=== PATIENT | male | born 1970 | race Caucasian/White ===

== ENCOUNTER 2017-09-08 16:33 | Inpatient (IN) | payer OTHER ==
[~2017-09-08] VITALS: Ht 172.7 cm; Wt 72.5 kg
[2017-09-08] MEDS ORDERED: QUET200T PO (16:49)
[2017-09-08 17:08] LABS: BASOPHILS # (AUTO) 0.01 K/uL (0.00-0.20); BASOPHILS % (AUTO) 0.1 % (0.0-2.0); EOSINOPHILS # (AUTO) 0.01 K/uL (0.00-0.70); EOSINOPHILS % (AUTO) 0.14 % (1.0-6.0); HEMATOCRIT 45.2 % (41-53); HEMOGLOBIN 15.3 g/dL (13.5-17.5); LYMPHOCYTES # (AUTO) 1.1 K/uL (1.0-4.8); LYMPHOCYTES % (AUTO) 14.1 % (22.0-44.0); MEAN CORPUSCULAR HEMOGLOBIN 32.2 pg (26.0-34.0); MEAN CORPUSCULAR VOLUME 95 fL (80-100); MONOCYTES # (AUTO) 0.4 K/uL (0.1-1.0); MONOCYTES % (AUTO) 5.4 % (2.0-9.0); NEUTROPHILS % (AUTO) 80.2 % (40.0-70.0); PLATELET COUNT (AUTO) 343 K/uL (150-450); RED BLOOD CELL COUNT(AUTO) 4.76 MIL/uL (4.50-5.90); RED CELL DISTRIBUTION WIDTH 13.4 % (11.5-14.5); WHITE BLOOD COUNT (AUTO) 7.5 K/uL (4.5-11.0)
[2017-09-08 17:13] LABS: ANION GAP 5 mmol/L (8-16); CALCIUM, TOTAL 8.7 mg/dL (8.8-10.5); CARBON DIOXIDE 28 mmol/L (22-29); CHLORIDE 100 mmol/L (98-107); CREATININE 1.07 mg/dL (0.60-1.30); GLOMERULAR FILTR. RATE CALC > 60 mL/min (>60); POTASSIUM 3.5 mmol/L (3.5-5.1); SODIUM SERUM 133 mmol/L (136-145); UREA NITROGEN, BLOOD 7 mg/dL (7-18)
[2017-09-08 17:24] LABS: ALANINE AMINOTRANSFERASE 43 U/L (12-78); ALBUMIN 3.9 g/dL (3.4-5.0); ASPARTATE AMINOTRANSFERASE 37 U/L (15-37); BILIRUBIN,TOTAL 0.5 mg/dL (0.1-1.0); TOTAL PROTEIN, SERUM 7.1 g/dL (6.4-8.2)
[2017-09-08] MEDS ORDERED: ZOLPIDEM TARTRATE 10 MG TABLET PO PRN (17:30)
[2017-09-08] MEDS ORDERED: HALOPERIDOL 5 MG TABLET PO PRN ×2 (17:30→17:45)
[2017-09-08] MEDS ORDERED: LORazepam 2 MG TABLET PO PRN (17:30)
[2017-09-08 18:45] VITALS: BP 145/89
[2017-09-08] MEDS: LORazepam 2 MG TABLET PO PRN (19:09)
[2017-09-08 19:45] VITALS: BP 143/88
[2017-09-08] MEDS ORDERED: INFLUENZA VIRUS VACCINE QVS 2017-18 (3YR+)/PF 60 MCG/0.5 ML SYRINGE IM ONE (20:00)
[2017-09-08 20:45] VITALS: BP 135/82
[2017-09-08] MEDS: QUEtiapine FUMARATE 200 MG TABLET PO SCH (20:53)
[2017-09-08] MEDS: ZOLPIDEM TARTRATE 10 MG TABLET PO PRN (21:26)
[2017-09-08 21:49] VITALS: BP 121/80
[2017-09-09] VITALS (7 sets, daily range): BP systolic 124–146; BP diastolic 62–90
[2017-09-09] MEDS: ESCITALOPRAM OXALATE 10 MG TABLET PO SCH (09:15)
[2017-09-09] MEDS: LORazepam 2 MG TABLET PO PRN (13:43)
[2017-09-09] MEDS ORDERED: LOPERAMIDE HCL 2 MG CAPSULE PO PRN (13:45)
[2017-09-09] MEDS: QUEtiapine FUMARATE 200 MG TABLET PO SCH (20:33)
[2017-09-09] MEDS: ZOLPIDEM TARTRATE 10 MG TABLET PO PRN (22:18)
[2017-09-10 06:38] VITALS: BP 138/90
[2017-09-10] MEDS: ESCITALOPRAM OXALATE 10 MG TABLET PO SCH (08:54)
[2017-09-10 09:00] VITALS: BP 124/75
== END 2017-09-10 11:50 | disposition home or self-care (01) | DRG 885 ==
LOC: EMS 16:35 → B2X 17:59
PROVIDERS: ADMIT Psychiatry & Neurology Child & Adolescent Psychiatry; ATTEND Psychiatry & Neurology Child & Adolescent Psychiatry
PROC: 0HQEXZZ Repair Left Lower Arm Skin, External Approach (ICD-10-PCS; principal; 2017-09-08)
DX: F32.2 Major depressive disorder, single episode, severe without psychotic features (principal); E87.1 Hypo-osmolality and hyponatremia; F43.10 Post-traumatic stress disorder, unspecified; R73.9 Hyperglycemia, unspecified; F10.129 Alcohol abuse with intoxication, unspecified; Y90.4 Blood alcohol level of 80-99 mg/100 ml; S61.512A Laceration without foreign body of left wrist, initial encounter; X78.8XXA Intentional self-harm by other sharp object, initial encounter; Y92.098 Other place in other non-institutional residence as the place of occurrence of the external cause; Z91.14 Patient's other noncompliance with medication regimen
CPT/HCPCS: 12001; 99285; G0480